=== PATIENT | male | born 1990 | race Caucasian/White ===

== ENCOUNTER 2017-09-19 10:27 | Emergency (ER) | payer OTHER ==
[~2017-09-19] VITALS: Ht 182.9 cm; Wt 121.6 kg
== END 2017-09-19 12:39 | disposition home or self-care (01) ==
LOC: ED 10:27
DX: S53.401A Unspecified sprain of right elbow, initial encounter (principal); X58.XXXA Exposure to other specified factors, initial encounter
CPT/HCPCS: 73080; 99283

== ENCOUNTER 2017-12-21 17:06 | Emergency (ER) | payer OTHER ==
[~2017-12-21] VITALS: Ht 182.9 cm; Wt 103.0 kg
[2017-12-21] MEDS ORDERED: NORCO 10-325 T1 EACH PO (17:36)
[2017-12-21] MEDS ORDERED: PENICILLIN V P500 MG PO (17:36)
== END 2017-12-21 17:42 | disposition home or self-care (01) ==
LOC: ED 17:06
DX: K08.89 Other specified disorders of teeth and supporting structures (principal); I10 Essential (primary) hypertension
CPT/HCPCS: 99283

== ENCOUNTER 2024-05-23 11:11 | Emergency (ER) | payer OTHER ==
[~2024-05-23] VITALS: Ht 182.9 cm; Wt 152.2 kg
[~2024-05-23 11:11] MED LIST: NORCO 10-325 T1 EACH PO; PENICILLIN V P500 MG PO
[2024-05-23 11:29] LABS: BASOPHILS 0.7 % (0-2); EOSINOPHILS 1.1 % (0-6); HEMATOCRIT 45.5 % (35.0-50.0); HEMOGLOBIN 15.8 g/dL (12.0-18.0); LYMPHOCYTES 34.9 % (24-44); MCH 29.1 (27-36); MCHC 34.7 g/dl (30-36); MCV 83.9 fl (81-99); MONOCYTES 8.6 % (0-12); NEUTROPHILS 54.7 % (39-80); PLATELET COUNT 340 K/uL (140-440); RBC 5.43 M/ul (4.3-5.7); RDW 13.2 (10.5-15.0)
[2024-05-23] MEDS ORDERED: ELIQUIS2.5 MG PO (11:29)
[2024-05-23] MEDS ORDERED: LISINOPRIL-HCT1 EAC1 PO (11:29)
[2024-05-23] MEDS ORDERED: MULTI VITAMIN1 EACH PO (11:30)
[2024-05-23] MEDS ORDERED: SODIUM CHLORIDE 0.9% 1,000 ML IV ONE (11:30)
[2024-05-23 11:44] LABS: ALBUMIN 4.7 g/dL (3.4-5.0); ALBUMIN/GLOBULIN RATIO 1.42 (1.1-2.4); ANION GAP 16.9 (7-21); BILIRUBIN, TOTAL 0.7 ng/dL (0.2-1.0); BUN/CREATININE RATIO 22.85 (6.0-28.6); CALCIUM 9.8 mg/dL (8.5-10.1); CREATININE, SERUM 1.75 mg/dL (0.70-1.30); POTASSIUM 2.9 mmol/L (3.5-5.1)
[2024-05-23] MEDS ORDERED: POTASSIUM CHLORIDE 10 MEQ/100 ML BAG IV SCH (12:15)
[2024-05-23] MEDS ORDERED: SODIUM CHLORIDE 0.9% 1,000 ML IV PRN (13:00)
[2024-05-23 14:15] LABS: ALBUMIN 4.5 g/dL (3.4-5.0); ALBUMIN/GLOBULIN RATIO 1.45 (1.1-2.4); ANION GAP 15.1 (7-21); BILIRUBIN, TOTAL 0.6 ng/dL (0.2-1.0); BUN/CREATININE RATIO 24.65 (6.0-28.6); CALCIUM 9.2 mg/dL (8.5-10.1); CREATININE, SERUM 1.46 mg/dL (0.70-1.30); POTASSIUM 3.1 mmol/L (3.5-5.1); PROTEIN, TOTAL 7.6 g/dL (6.4-8.2)
[2024-05-23] MEDS ORDERED: POTASSIUM CHLORIDE 20 MEQ/15 ML CUP PO ONE (15:00)
[2024-05-23] MEDS ORDERED: SULF-PRED 10-0.25 ML OPTH (15:53)
[2024-05-23 16:05] VITALS: BP 125/78
--- NOTE | 2024-05-24 13:48 | EKG ---
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
== END 2024-05-23 16:06 | disposition home or self-care (01) ==
LOC: ED 11:11
PROVIDERS: Emergency Medicine
DX: R55 Syncope and collapse (principal); E86.0 Dehydration; I45.4 Nonspecific intraventricular block; Z98.84 Bariatric surgery status; Z79.01 Long term (current) use of anticoagulants; Z79.899 Other long term (current) drug therapy
CPT/HCPCS: 36415; 71045; 80053; 83605; 83735; 84484; 85025; 93005; 93010; 96361; 96365; 96366; 99284-25; A9270; J3480; J7030